=== PATIENT | female | born 1975 | race Caucasian/White ===

== ENCOUNTER → 2017-11-21 | Outpatient (CLI) | payer BC ==
[2015-05-29 20:47] VITALS: BP 111/71
[~2017-11-21] MED LIST: VIIBRYD40 MG PO; WELLBUTRIN SR150 M2 PO
== END ==
LOC: RAD 11:39
DX: M54.12 Radiculopathy, cervical region (principal); M25.511 Pain in right shoulder; Z88.1 Allergy status to other antibiotic agents; Z88.8 Allergy status to other drugs, medicaments and biological substances

== ENCOUNTER → 2018-03-27 | Outpatient (CLI) | payer BC ==
[2015-05-29 20:47] VITALS: BP 111/71
[2018-03-27 08:51] LABS: BASO # 0.1 (0.02-0.10); EOS # 0.2 (0.04-0.40); EOS % 1.9 % (1.0-5.0); HEMATOCRIT 40.4 % (37.0-47.0); HEMOGLOBIN 13.1 g/dL (12.5-16.0); MEAN CELL VOLUME 84 fl (78-100); MEAN CORPUSCULAR HEMOGLOBIN 27 pg (27-31); MEAN CORPUSCULAR HGB CONC 32 g/dL (33-37); MEAN PLATELET VOLUME 10.3 fl (7.4-10.4); MONO # 0.5 (0.20-0.80); NEU # 6.1 (1.40-6.50); PLATELET COUNT 304 K/mm3 (130-400); RED BLOOD COUNT 4.82 M/mm3 (4.10-5.30); RED CELL DISTRIBUTION WIDTH 13.5 % (11.5-14.5); WHITE BLOOD COUNT 8.8 K/mm3 (4.8-10.8)
[2018-03-27 09:07] LABS: CALCIUM 8.9 mg/dL (8.4-10.2); POTASSIUM 3.9 mmol/L (3.6-5.0); TOTAL BILIRUBIN 0.5 mg/dL (0.2-1.3); TOTAL PROTEIN 6.9 g/dL (6.3-8.2)
== END ==
LOC: LAB 08:40
PROVIDERS: Family Medicine
DX: Z00.00 Encounter for general adult medical examination without abnormal findings (principal); E16.2 Hypoglycemia, unspecified; E55.9 Vitamin D deficiency, unspecified; M1A.9XX0 Chronic gout, unspecified, without tophus (tophi); R53.83 Other fatigue

== ENCOUNTER → 2018-03-30 | Outpatient (CLI) | payer BC ==
[2015-05-29 20:47] VITALS: BP 111/71
== END ==
LOC: RAD 08:03
DX: M25.571 Pain in right ankle and joints of right foot (principal); M79.671 Pain in right foot

== ENCOUNTER → 2018-04-19 | Outpatient (CLI) | payer BC ==
[2015-05-29 20:47] VITALS: BP 111/71
== END ==
LOC: RAD 08:26
DX: R60.0 Localized edema (principal); M79.671 Pain in right foot

== ENCOUNTER → 2020-08-21 | Outpatient (CLI) | payer SELFPAY ==
[2015-05-29 20:47] VITALS: BP 111/71
== END ==
LOC: LAB 14:26
DX: L98.9 Disorder of the skin and subcutaneous tissue, unspecified (principal)

== ENCOUNTER → 2021-03-24 | Outpatient (CLI) | payer BC ==
[2021-03-24 11:55] LABS: CLUE CELLS NOT OBSERVED (Not Observd)
== END ==
LOC: LAB 10:24
PROVIDERS: Nurse Practitioner
DX: N89.8 Other specified noninflammatory disorders of vagina (principal)
CPT/HCPCS: Q0111